=== PATIENT | male | born 1970 | race Two or more races ===

== ENCOUNTER 2017-05-31 11:39 | Emergency (ER) | payer MEDICAID ==
[2017-05-31 11:45] VITALS: BP 108/66; PULSE 68; RESP 16; TEMP 98.2; O2SAT 99
--- NOTE | 2017-06-04 18:13 | C.PDOC ---
History Of Present Illness PATIENT LEFT WITHOUT BEING SEEN BY ME. NO PATIENT CONTACT WAS MADE BY ME. PER ADMINISTRATION, I WAS TOLD TO SIGN THE CHART, SOLELY FOR THE PURPOSE OF HAVING PATIENT OFF OF MY LIST, NOT BECAUSE I SAW THE PATIENT. I WAS ALSO TOLD BY ADMINISTRATION TO WRITE A STATEMENT STATING THAT I WAS NOT INVOLVED IN THIS PATIENT'S CARE. Time Seen by Provider: 05/31/17 11:57 Chief Complaint (Nursing): Substance Abuse Past Medical History Reviewed: Historical Data, Nursing Documentation, Vital Signs Vital Signs: Last Vital Signs Temp 98.2 F 05/31/17 11:40 Pulse 68 05/31/17 11:40 Resp 16 05/31/17 11:40 BP 108/66 05/31/17 11:40 Pulse Ox 99 06/04/17 18:16 Family History: States: Unknown Family Hx - Social History Hx Alcohol Use: No Hx Substance Use: No - Immunization History Hx Tetanus Toxoid Vaccination: No Hx Influenza Vaccination: No Hx Pneumococcal Vaccination: No ED Course And Treatment O2 Sat by Pulse Oximetry: 99 Disposition - Disposition Disposition: LEFT W/O BEING SEEN - ER ONLY Disposition Time: 11:53 Condition: UNKNOWN Forms: [employer] (Yoruba) - Clinical Impression Clinical Impression: Patient left without being seen
== END 2017-05-31 11:57 | disposition left against medical advice (07) ==
LOC: C.ER 11:39
DX: F19.10 Other psychoactive substance abuse, uncomplicated (principal); Z02.9 Encounter for administrative examinations, unspecified